=== PATIENT | male | born 1970 | race Caucasian/White ===

== ENCOUNTER 2017-08-24 13:21 | Emergency (ER) | payer MEDICAID ==
[2017-08-24] MEDS: FAMOTIDINE 20 MG INJ IV (16:42)
[2017-08-24] MEDS: ONDANSETRON 4 MG INJ IV (16:42)
[2017-08-24] MEDS: morphine 2 MG INJ IV (16:42)
[2017-08-24 16:43] LABS: ADD MAN DIFF? NO
[2017-08-24] MEDS: LIDOCAINE/MYLANTA 40 ML BTL PO (16:43)
[2017-08-24] MEDS: SOD CHLORIDE 0.9% 1,000 ML IV (16:43)
[2017-08-24 16:44] LABS: BASOPHILS % 0.3 % (0.0-2.0); EOSINOPHILS # 0.1 10^3/ul (0.0-0.5); EOSINOPHILS % 0.6 % (0.0-7.0); HEMATOCRIT 42.5 % (42.0-52.0); HEMOGLOBIN 14.7 g/dl (14.0-18.0); LYMPHOCYTES # 1.3 10^3/ul (0.8-2.9); LYMPHOCYTES % 9.5 % (15.0-51.0); MEAN CORPUSCULAR HEMOGLOBIN 29.3 pg (29.0-33.0); MEAN CORPUSCULAR HGB CONC 34.6 g/dl (32.0-37.0); MEAN CORPUSCULAR VOLUME 84.7 fl (82.0-101.0); MEAN PLATELET VOLUME 9.2 fl (7.4-10.4); MONOCYTE # 1.1 10^3/ul (0.3-0.9); MONOCYTES % 8.2 % (0.0-11.0); NEUTROPHIL # 10.8 10^3/ul (1.6-7.5); PLATELET COUNT 387 10^3/UL (140-415); RED BLOOD COUNT 5.02 10^6/ul (4.70-6.10); RED CELL DISTRIBUTION WIDTH 11.9 % (11.5-14.5)
[2017-08-24 16:44] LABS: WHITE BLOOD COUNT 13.4 10^3/ul (4.8-10.8)
[2017-08-24 16:48] LABS: ADD UMIC NO; UR ASCORBIC ACID NEGATIVE (NEGATIVE); UR BACTERIA FEW /HPF (NONE SEEN); UR BILIRUBIN (Dip) NEGATIVE (NEGATIVE); UR BLOOD (Dip) NEGATIVE (NEGATIVE); UR CLARITY SLIGHTLY CLOUDY (CLEAR); UR COLOR YELLOW (YELLOW); UR GLUCOSE (Dip) NEGATIVE (NEGATIVE); UR KETONES (Dip) 1+ mg/dL (NEGATIVE); UR LEUKOCYTE ESTERASE (Dip) NEGATIVE Leu/ul (NEGATIVE); UR MUCUS FEW /HPF (NONE SEEN); UR NITRITE (Dip) NEGATIVE (NEGATIVE); UR RBC 3 /HPF (0-5); UR SPECIFIC GRAVITY (Dip) 1.015 (1.003-1.030); UR TOTAL PROTEIN (Dip) NEGATIVE (NEGATIVE); UR UROBILINOGEN (Dip) NEGATIVE (NEGATIVE); UR WBC 1 /HPF (0-5)
[2017-08-24 17:02] LABS: ALANINE AMINOTRANSFERASE 26 IU/L (13-69); ALBUMIN 4.7 g/dl (3.3-4.9); ALBUMIN/GLOBULIN RATIO 1.23; ALKALINE PHOSPHATASE 113 IU/L (42-121); ANION GAP 19 (8-16); ASPARTATE AMINO TRANSFERASE 22 IU/L (15-46); BILIRUBIN,INDIRECT 0.5 mg/dl (0-1.1); BILIRUBIN,TOTAL 0.5 mg/dl (0.2-1.3); BLOOD UREA NITROGEN 13 mg/dl (7-20); CALCIUM 9.6 mg/dl (8.4-10.2); CARBON DIOXIDE 29 mmol/L (21-31); CHLORIDE 97 mmol/L (97-110); CREATININE 1.47 mg/dl (0.61-1.24); GLUCOSE 97 mg/dl (70-220); LIPASE 83 U/L (23-300); SODIUM 141 mmol/L (135-144); TOTAL PROTEIN 8.5 g/dl (6.1-8.1)
[2017-08-24] MEDS: MAGNESIUM HYDROXIDE 30ML CUP PO (18:04)
[2017-08-24] MEDS: IODIXANOL LOCM 100 ML BTL (20:53)
[2017-08-24] MEDS: SOD CHLORIDE 0.9% 100 ML (20:53)
[2017-08-24] MEDS: HYDROCODONE/APAP (5/325) TAB PO (22:17)
== END 2017-08-24 22:20 | disposition home or self-care (01) ==
LOC: FTE 13:21
DX: C66.1 Malignant neoplasm of right ureter (principal); R59.1 Generalized enlarged lymph nodes
CPT/HCPCS: 36415; 74176; 74177; 76705; 80053; 81001; 81003; 83690; 85025; 96374; 96375; 99285-25